=== PATIENT | female | born 1960 | race Hispanic/Latino ===

== ENCOUNTER 2022-06-11 15:46 | Emergency (ER) | payer BC ==
[~2022-06-11] VITALS: Ht 152.4 cm; Wt 70.3 kg
[2022-06-11] MEDS ORDERED: FAMOTIDINE 20 MG/2 ML VIAL IV STA (16:09)
[2022-06-11] MEDS ORDERED: METHYLPREDNISOLONE SOD SUCC 125 MG/2ML VIAL ONE (16:12)
[2022-06-11] MEDS ORDERED: FAMOTIDINE 20 MG/2 ML VIAL IV ONE (16:13)
[2022-06-11] MEDS ORDERED: LACTATED RINGER'S 1,000 ML ONE (16:13)
[2022-06-11] MEDS ORDERED: DIPHENHYDRAMINE HCL INJ 50 MG/ML VIAL IV ONE (16:15)
[2022-06-11] MEDS ORDERED: LACTATED RINGER'S 1,000 ML INJ ONE (16:15)
[2022-06-11 16:21] LABS: BASOPHILS # (AUTO) 0.1 (0.0-0.1); BASOPHILS % 0.6 % (0.0-1.0); EOSINOPHILS # (AUTO) 0.3 (0.0-0.4); EOSINOPHILS % 2.2 % (0.0-6.0); HEMATOCRIT 41.6 % (34.2-44.1); HEMOGLOBIN 14.4 g/dL (12.0-16.0); LYMPHOCYTES # (AUTO) 5.3 (1.0-3.2); LYMPHOCYTES % 44.6 % (18.0-39.1); MEAN CORPUSCULAR HEMOGLOBIN 31.3 pg (28-32); MEAN CORPUSCULAR HGB CONC 34.6 g/dL (31-35); MEAN CORPUSCULAR VOLUME 90.4 fL (81-99); MONOCYTES # (AUTO) 0.7 (0.2-0.8); MONOCYTES % 6.3 % (4.4-11.3); NEUTROPHILS # (AUTO) 5.4 (2.1-6.9); PLATELET COUNT 261 x10e3/uL (140-360); RED CELL DISTRIBUTION WIDTH 11.4 % (11.7-14.4)
[2022-06-11 16:34] LABS: ALBUMIN 3.9 g/dL (3.5-5.0); ALBUMIN/GLOBULIN RATIO 1.2 (0.8-2.0); ANION GAP 17.4 mmol/L (8-16); CALCIUM 10.3 mg/dL (8.4-10.2); CREATININE, SERUM 0.86 mg/dL (0.57-1.11); POTASSIUM 3.4 mmol/L (3.5-5.1)
[2022-06-11] MEDS ORDERED: METHYLPREDNISOLONE SOD SUCC 125 MG/2ML VIAL IV ONE (17:00)
[2022-06-11] MEDS ORDERED: MEDROL4 M2 PO (18:26)
[2022-06-11] MEDS ORDERED: CEFDINIR300 MG PO (18:26)
[2022-06-11 18:58] VITALS: BP 121/57
== END 2022-06-11 19:02 | disposition home or self-care (01) ==
LOC: ER 15:53
DX: R42 Dizziness and giddiness (principal); R23.2 Flushing; R68.83 Chills (without fever); T37.8X5A Adverse effect of other specified systemic anti-infectives and antiparasitics, initial encounter; N39.0 Urinary tract infection, site not specified; I10 Essential (primary) hypertension; Z79.899 Other long term (current) drug therapy; Z88.0 Allergy status to penicillin; Y92.009 Unspecified place in unspecified non-institutional (private) residence as the place of occurrence of the external cause
CPT/HCPCS: 36415; 71045; 80053; 84484; 85025; 93005; 99284; J2930; J7121

== ENCOUNTER 2024-02-27 11:40 | Emergency (ER) | payer BC, MEDICARE ==
[~2024-02-27] VITALS: Ht 157.5 cm; Wt 71.4 kg
[~2024-02-27 11:40] MED LIST: CEFDINIR300 MG PO; MEDROL4 M2 PO
[2024-02-27] MEDS ORDERED: TRIBENZOR 40-11 EACH (11:49)
[2024-02-27 13:27] VITALS: PULSE 66; RESP 16; TEMP 97.6; O2SAT 99
== END 2024-02-27 13:54 | disposition home or self-care (01) ==
LOC: EDBD 11:46 → FSED 11:46
DX: S00.03XA Contusion of scalp, initial encounter (principal); M25.521 Pain in right elbow; W01.0XXA Fall on same level from slipping, tripping and stumbling without subsequent striking against object, initial encounter; Y93.01 Activity, walking, marching and hiking; Y92.89 Other specified places as the place of occurrence of the external cause; I10 Essential (primary) hypertension
CPT/HCPCS: 70450; 99283

== ENCOUNTER 2025-01-05 13:31 | Emergency (ER) | payer MEDICARE ==
[~2025-01-05] VITALS: Ht 157.5 cm; Wt 72.3 kg
[~2025-01-05 13:31] MED LIST changes: +TRIBENZOR 40-11 EACH
[2025-01-05 14:10] VITALS: PULSE 74; RESP 18; TEMP 98.1
[2025-01-05 15:58] VITALS: BP 123/59; PULSE 80; RESP 16; TEMP 98.2; O2SAT 98
== END 2025-01-05 15:57 | disposition home or self-care (01) ==
LOC: FSED 15:05
DX: R51.9 Headache, unspecified (principal); I10 Essential (primary) hypertension; F41.9 Anxiety disorder, unspecified
CPT/HCPCS: 70450; 99284